=== PATIENT | male | born 1990 | race Caucasian/White ===

== ENCOUNTER 2019-01-01 12:16 | Emergency (ER) | payer OTHER ==
[~2019-01-01] VITALS: Ht 180.3 cm; Wt 59.0 kg
[2019-01-01 12:55] LABS: ABSOLUTE NEUTROPHILS 2.9 thou/uL (1.4-8.2); BASOPHILS 0.7 % (0.0-2.0); HEMATOCRIT 46.3 % (42.0-52.0); HEMOGLOBIN 16.2 gm/dL (14.0-18.0); LYMPHOCYTES 44.3 % (24.0-44.0); MCH 32.7 pg (26.0-34.0); MCV 93.4 fL (80.0-100.0); MONOCYTES 7.7 % (1.0-8.0); PLATELET COUNT 207 thou/uL (150-400); POLYS 46.3 % (36.0-66.0); RBC 4.96 mil/uL (4.50-6.00); WBC 6.2 thou/uL (4.0-11.0)
[2019-01-01 13:03] LABS: CALCIUM 9.7 mg/dL (8.5-10.1); POTASSIUM 5.1 mmol/L (3.5-5.1)
[2019-01-01 13:08] LABS: ALBUMIN 4.5 g/dL (3.4-5.0); TOTAL BILIRUBIN 1.1 mg/dL (<0.1-1.0); TOTAL PROTEIN 7.3 g/dL (6.4-8.2)
[2019-01-01 13:17] LABS: URINE BLOOD 3+ (Negative); URINE CLARITY CLEAR; URINE COLOR BROWN; URINE GLUCOSE-RANDOM* NEGATIVE (Negative); URINE KETONES TRACE (Negative); URINE LEUKOCYTES-REFLEX NEGATIVE (Negative); URINE NITRITE-REFLEX NEGATIVE (Negative); URINE PROTEIN (DIPSTICK) 2+ (Negative); URINE SPECIFIC GRAVITY >= 1.030 (1.005-1.035)
[2019-01-01 13:23] LABS: ICTOTEST (BILI CONFIRMATORY) Negative (Negative); URINE BILIRUBIN NEGATIVE (Negative)
[2019-01-01 13:33] LABS: CASTS None Seen /LPF (None Seen); MUCUS >6 Heavy strn/LPF (None Seen); SQUAMOUS 0-3 Few /LPF (0-3); URINE RBC >20 Many /HPF (0-2); URINE WBC-REFLEX 0-5 Rare /HPF (0-5)
[2019-01-01 13:34] LABS: AMORPHOUS URATES Few /LPF (None Seen); BACTERIA-REFLEX None Seen /HPF (None Seen)
[2019-01-01 17:09] VITALS: BP 138/86
== END 2019-01-01 17:25 | disposition short-term general hospital (02) ==
LOC: ER 12:16
PROVIDERS: Physician Assistant
DX: N20.0 Calculus of kidney (principal); R11.10 Vomiting, unspecified; Z88.6 Allergy status to analgesic agent